=== PATIENT | male | born 2000 | race Caucasian/White ===

== ENCOUNTER 2019-08-01 19:33 | Emergency (ER) | payer OTHER ==
[~2019-08-01] VITALS: Ht 177.8 cm; Wt 77.1 kg
[2019-08-01 19:45] VITALS: BP 122/81
[2019-08-01] MEDS ORDERED: Bacitracin Oint UD TOPIC ONE (20:20)
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
--- NOTE | 2019-08-01 21:16 | Diagnostic Imaging Report ---
EXAM: CT Head Without Intravenous Contrast CLINICAL HISTORY: Injury. Headache. TECHNIQUE: Axial computed tomography images of the head/brain without intravenous contrast. CTDI is 53.4 mGy and DLP is 965.4 mGy-cm. One or more of the following dose reduction techniques were used: automated exposure control, adjustment of the mA and/or kV according to patient size, use of iterative reconstruction technique. COMPARISON: None. FINDINGS: Brain: No abnormal white matter change. No abnormal extra-axial collection. No hemorrhage. Midline shift: No midline shift or mass-effect. Ventricles: The ventricular system is unremarkable. Bones/joints: Bony skull is unremarkable. The calvarium is within normal limits. No acute fracture. Soft tissues: Unremarkable. Sinuses: Unremarkable as visualized. No acute sinusitis. Mastoid air cells: Visualized sinuses and mastoid air cells are unremarkable. Other findings: Axial and coronal images are provided. IMPRESSION: No acute intracranial pathology is detected.
[2019-08-01] MEDS ORDERED: NAPROXEN500 M2 ORAL (21:26)
[2019-08-01 21:34] VITALS: BP 122/81
== END 2019-08-01 21:34 | disposition home or self-care (01) ==
LOC: EMR 20:28
DX: S09.90XA Unspecified injury of head, initial encounter (principal); S40.811A Abrasion of right upper arm, initial encounter; V43.52XA Car driver injured in collision with other type car in traffic accident, initial encounter; Y92.410 Unspecified street and highway as the place of occurrence of the external cause; R11.0 Nausea
CPT/HCPCS: 70450; 99284